=== PATIENT | male | born 2000 | race African-American/Black ===

== ENCOUNTER 2022-11-09 02:48 | Emergency (ER) | payer MEDICAID, OTHER ==
[~2022-11-09] VITALS: Ht 170.2 cm; Wt 127.0 kg
--- NOTE | 2022-11-09 03:15 | NUR ---
Dr. Monroy evaluating patient at bedside. MSE in progress.
--- NOTE | 2022-11-09 03:19 | NUR ---
COVID swab and UA sent to lab.
--- NOTE | 2022-11-09 03:23 | NUR ---
Lab at bedside
[2022-11-09 03:47] LABS: HEMATOCRIT 46.3 % (36.7-47.1); MEAN CORPUSCULAR HEMOGLOBIN 27.2 uug (23.8-33.4); PLATELET COUNT (AUTO) 207 K/uL (152-348)
--- NOTE | 2022-11-09 03:48 | NUR ---
Patient given turkey sandwich, chocolate pudding, 2 orange juice.
[2022-11-09 03:54] LABS: *BILIRUBIN,URIN NEGATIVE (NEGATIVE); *BLOOD, URINE NEGATIVE (NEGATIVE); *CLARITY,URINE CLEAR (CLEAR); *COLOR,URINE YELLOW (YELLOW); *KETONES,URINE NEGATIVE (NEGATIVE); LEUKOCYTE ESTERASE ,URINE NEGATIVE (NEGATIVE); NITRITE, URINE NEGATIVE (NEGATIVE); UGLUCOSE NEGATIVE (NEGATIVE)
--- NOTE | 2022-11-09 03:55 | NUR ---
Patient ate 100% of meal.
[2022-11-09 04:06] LABS: ETHANOL < 3 MG/DL (0-0)
[2022-11-09 04:10] LABS: *AMPHETAMINE, URINE NEGATIVE (NEGATIVE); *CANNABINOID, URINE POSITIVE (NEGATIVE); *COCCAINE, URINE NEGATIVE (NEGATIVE); *PHENCYCLIDINE SCREEN,URINE NEGATIVE (NEGATIVE)
--- NOTE | 2022-11-09 04:12 | NUR ---
Patient currently sleeping comfortably in room.
[2022-11-09 04:14] LABS: RBC,URINE 0-3 /HPF (0-3); WBC,URINE NONE SEEN /HPF (0-3)
[2022-11-09 04:15] LABS: BACTERIA,URINE NONE SEEN /HPF (NONE SEEN); SQUAMOUS EPITHELIAL CELL,UR FEW /HPF (NONE SEEN)
--- NOTE | 2022-11-09 04:30 | NUR ---
Patient medically clear for transfer per Dr. Monroy.
[2022-11-09 04:36] LABS: CARBON DIOXIDE 27 mmol/L (21-32); CHLORIDE 101 mmol/L (98-107); CREATININE 1.2 mg/dL (0.6-1.3); GLUCOSE 99 mg/dL (74-106); POTASSIUM 3.5 mmol/L (3.5-5.1); UREA NITROGEN, BLOOD 10 mg/dL (7-18)
[2022-11-09 04:42] LABS: ACETAMINOPHEN 31.2 ug/mL (10-30); ALANINE AMINOTRANSFERASE < 6 U/L (16-63); ALKALINE PHOSPHATASE 62 U/L (50-136); BILIRUBIN,DIRECT < 0.1 mg/dL (0.0-0.2); BILIRUBIN,TOTAL 0.5 mg/dL (0.2-1.0); TOTAL PROTEIN, SERUM 7.9 g/dL (6.4-8.2)
--- NOTE | 2022-11-09 04:51 | NUR ---
Spoke to Rachael at [facility] , states they are full and have no beds avaliable. She mentioned to call back again between 7am to 8am.
[2022-11-09 04:53] LABS: ASPARTATE AMINOTRANSFERASE < 15 U/L (15-37)
--- NOTE | 2022-11-09 05:02 | NUR ---
Spoke to [facility]. Possible bed avaliable at [place] location.
--- NOTE | 2022-11-09 05:14 | NUR ---
Faxed clinical data over to Alaina at [facility]
--- NOTE | 2022-11-09 05:26 | NUR ---
Called [place] intake at . Stated they are currently reviewing patient's clinical data. Waiting for call back.
[2022-11-09 06:48] LABS: ACETAMINOPHEN < 2.0 ug/mL (10-30)
--- NOTE | 2022-11-09 07:07 | NUR ---
Faxed updated clinical data to [facility]. .
--- NOTE | 2022-11-09 07:13 | NUR ---
CRISIS TEAM AGRONOMY SUPERVISOR THOMAS CALLED PER MD ORDER.
--- NOTE | 2022-11-09 08:21 | NUR ---
Patient is resting comfortably on gurney with eyes closed, pending psych tradeshow worker (Kasi) to come to ER and evaluate this patient.
--- NOTE | 2022-11-09 09:49 | NUR ---
Psych break out worker Kasi is here.
--- NOTE | 2022-11-09 10:02 | NUR ---
Patient ambulated to bathroom with brisk steady gait.
--- NOTE | 2022-11-09 10:13 | NUR ---
Delano britt in ED - 11/09/22 at 1027 by EVITA Psych property worker's notes (Kasi Carrera) were faxed to [facility] [place] [facility] per behavioral fitness worker Alaina's request, pending callback for acceptance. fax#
--- NOTE | 2022-11-09 10:13 | NUR ---
Psych workers compensation claims examiner's notes (Kasi Carrera) were faxed to [facility] [place] per behavioral personal caregiver Alaina's request, pending callback for acceptance. NUMBERS used: fax# tel#
--- NOTE | 2022-11-09 10:29 | NUR ---
Nella (from [facility]), the behavioral feeder worker power unit operator confirmed receiving our faxed notes at 1025am. Nella said that she will call our ER back for updates regarding acceptance for voluntary psych admission.
--- NOTE | 2022-11-09 10:44 | NUR ---
Patient is eating food tray with good appetite, NAD, calm & cooperative at this time.
--- NOTE | 2022-11-09 12:20 | NUR ---
Hot lunch tray at bedside.
--- NOTE | 2022-11-09 14:22 | NUR ---
No acute change seen in patient's condition, pending callback from [facility] behavioral antisqueak worker Nella or Nasir re: acceptance at their hospital.
--- NOTE | 2022-11-09 17:01 | NUR ---
Patient is still waiting from [facility] behavioral pulley worker's callback for acceptance (voluntary psych admission).
--- NOTE | 2022-11-09 19:23 | NUR ---
Nursing SBAR given to shift superintendent ER nurse Dana. Patient is still waiting for an accepting adult psych hospital. Patient voluntarily wants to go to any psych hospital. Patient has been calm & cooperative. Patient ate today with very good appetite.
--- NOTE | 2022-11-09 19:47 | NUR ---
Received pt. from [facility], pt. in bed. awake, and alert. f/u [facility] and talked to Niharika, she said insurance is still pending.
--- NOTE | 2022-11-10 00:28 | NUR ---
Called [facility], talked to Niharika and said they can only verify during business hours, and will try again in the morning.
--- NOTE | 2022-11-10 07:59 | NUR ---
assumed patient care 22 years old male homeless [facility] awaiting for psych placement for depression and suicidal ideation. no acute distress will continue to monitor and follow up with [facility].
--- NOTE | 2022-11-10 08:33 | NUR ---
KAR[phone][facility] and faxed the patient's facesheet to Neil ([phone]).
--- NOTE | 2022-11-10 08:40 | NUR ---
KARINA faxed the patient's clinical information to Neil at [facility] (fax: [phone]).
--- NOTE | 2022-11-10 09:29 | NUR ---
talked to Nella at [facility] and stated waiting for charge nurse and will call [facility] as soon as bed available.
--- NOTE | 2022-11-10 15:37 | NUR ---
patient stable transfer to [facility] for psych treatment, riky marques left er via [facility] [id number]. all belongings sent with patient.
== END 2022-11-10 15:50 ==
LOC: ER 02:48
DX: F25.0 Schizoaffective disorder, bipolar type (principal); R45.851 Suicidal ideations; Z20.822 Contact with and (suspected) exposure to COVID-19; Z59.00 Homelessness unspecified; R73.03 Prediabetes; F17.210 Nicotine dependence, cigarettes, uncomplicated; F11.10 Opioid abuse, uncomplicated; F12.10 Cannabis abuse, uncomplicated; F10.10 Alcohol abuse, uncomplicated; F15.10 Other stimulant abuse, uncomplicated
CPT/HCPCS: 36415; 85025; A4663; G0480